=== PATIENT | female | born 1975 | race Two or more races ===

== ENCOUNTER 2025-05-17 06:59 | Day surgery (SDC) | payer MEDICAID ==
[~2025-05-17] VITALS: Ht 170.2 cm; Wt 100.2 kg
[2025-05-17] MEDS: fentaNYL CITRATE 100 MCG/2 ML VL IV ONE (08:15)
[2025-05-17] MEDS: MIDAZOLAM HCL 2MG/2ML 2ml VIAL (1mg/ml) IV ONE (08:15)
[2025-05-17] MEDS: fentaNYL CITRATE 100 MCG/2 ML VL ONE (08:22)
[2025-05-17] MEDS: MIDAZOLAM HCL 2MG/2ML 2ml VIAL (1mg/ml) ONE (08:22)
[2025-05-17] MEDS: LIDOCAINE 2%HCL (LOCAL ANESTH.) INJ 20ML MDV ONE (08:29)
[2025-05-17 08:45] VITALS: BP 119/64; PULSE 65; RESP 17; O2SAT 98
--- NOTE | 2025-05-17 08:56 | DVHOP2 ---
Operative Report - 2 Report Details Date: 05/17/25 Preop Diagnosis: Right greater saphenous vein insufficiency Postop Diagnosis: Same Surgeon: Karri Bailon MD Anesthesiologist: Conscious sedation Anesthesia: Mac Consent: The patient was informed of the risks and benefits of the procedure. These include but are not limited to complications of anesthesia, postoperative infection, incomplete relief of symptoms, recurrence of symptoms, damage to blood vessels, nerves and tendons, deep venous thrombosis, pulmonary embolism and possible need for repeat surgery in the future. Estimated Blood Loss: Minimal Fluids: Minimal Name of Procedure Performed Right greater saphenous vein venous seal Procedure Details Procedure Details: Patient was identified in the preop hold area is being Mrs. Yi. She was consented and preopped by myself she was then placed on the table. Her right leg was prepped and draped in normal surgical fashion. After a time-out the patient was given IV sedation. The right leg was then ultrasound the great right greater saphenous vein was found to be adequate size for venous seal procedure. 1% lidocaine was then injected just above the knee over top of the greater saphenous vein under ultrasound guidance the right greater saphenous vein was then cannulated with a 4 [place] micropuncture needle. This was exchanged out for a 7 [place] venous sheath. Sheath was then passed up with a wire to the saphenofemoral junction and pulled back 10 cm. This was confirmed by ultrasound. At this point in time the glue was then prepared in the catheter the venous seal glue was then introduced into the catheter the catheter was then placed up to the tip of the inner sheath. Again confirmation of the catheter tip being 10 cm from the saphenofemoral junction. The glue was then injected at this level 10 cm from the saphenofemoral junction manual pressure was held externally to compress the vein for 2 minutes. And then the venous sheath was then pulled back gradually 1 mm/sec. The glue was injected throughout the length of the saphenous vein. Once the entire length of the vein had been treated the catheter and sheaths were removed manual pressure was held Steri- Strips were applied. A multilayer compression wrap was then applied to the right leg. Patient tolerated procedure well was taken recovery room in stable condition. Condition Stable Disposition Home KARRI BAIOLN Jr., MD May 17, 2025 08:56
[2025-05-17 09:00] VITALS: BP 120/66; PULSE 63; RESP 14; O2SAT 98
[2025-05-17 09:15] VITALS: BP 112/65; PULSE 62; RESP 15; O2SAT 98
[2025-05-17 09:30] VITALS: BP 119/67; PULSE 60; RESP 14; O2SAT 100
[2025-05-17 09:45] VITALS: BP 110/62; PULSE 60; RESP 14; O2SAT 98
== END 2025-05-17 10:05 | disposition home or self-care (01) ==
LOC: CATH 06:59
PROVIDERS: ATTEND Surgery Vascular Surgery
DX: I87.2 Venous insufficiency (chronic) (peripheral) (principal); Z98.51 Tubal ligation status; Z98.890 Other specified postprocedural states
CPT/HCPCS: 36482; J2250; J3010; 99152